=== PATIENT | female | born 2000 | race Caucasian/White ===

== ENCOUNTER → 2021-11-26 | Outpatient (CLI) | payer BC ==
--- NOTE | 2021-11-26 16:22 | MR ---
EXAMINATION TYPE: MR angio head wo con DATE OF EXAM: 11/26/2021 COMPARISON: MR brain same date HISTORY: MIGRAINE, UNSP, NOT INTRACTABLE, family hx aneurysm TECHNIQUE: Time of flight images focusing on the [place] of [place] were performed without contrast. Th ree-dimensional reconstructions performed on an alternate workstation and reviewed. FINDINGS: Motion artifact is present. Anterior and posterior circulation are patent. There is no evid ent aneurysm, dissection, stenosis, or embolus. IMPRESSION: Within the limitations of the exam, no abnormality evident to account for patient's symptoms.
--- NOTE | 2021-11-26 16:59 | MR ---
EXAMINATION TYPE: MR brain wo/w con DATE OF EXAM: 11/26/2021 COMPARISON: HISTORY: MIGRAINE, UNSP, NOT INTRACTABLE, family hx aneurysm TECHNIQUE: Multiplanar, multisequence images of the brain and brainstem is performed without and with IV contras t, utilizing 5 mL intravenous Gadavist . FINDINGS: There is some artifact noted. Diffusion weighted images demonstrate no evidence of a recent infarct or other diffusion abnormality. There is no extra-axial fluid collection or significant white matter signal abnormality. The ventr icular system and cisternal spaces are normal in size and appearance. The brain volume is age approp riate. Midline structures demonstrate normal morphology. The craniocervical junction appears within normal limits. Post contrast images demonstrate no abnormal enhancement. The dural venous sinuses appear pa tent. The visualized sinuses are clear with mild mucosal signal noted in the ethmoid air cells, and t he globes are intact. IMPRESSION: Normal pre and postcontrast brain MRI. Mild sinus disease.
== END | disposition home or self-care (01) ==
LOC: RADMRIMAIN 06:00
PROVIDERS: ATTEND Psychiatry & Neurology Neurology
DX: G43.909 Migraine, unspecified, not intractable, without status migrainosus (principal)
CPT/HCPCS: 70544; 70553; A9585